=== PATIENT | female | born 1950 | race Two or more races ===

== ENCOUNTER 2024-06-24 18:04 | Inpatient (IN) | payer MEDICARE, MEDICAID ==
[~2024-06-24] VITALS: Ht 167.6 cm; Wt 77.0 kg
--- NOTE | 2024-06-24 18:38 | ED.PDOC ---
HPI Comments 73-year-old female who came to ER via EMS for chest pains. Patient has history of Parkinson's disease and progressive supranuclear palsy. History obtained from daughter who accompanies patient. States for the past hour, patient developed sudden onset left-sided chest pains, sharp, tender to touch, worsening with deep breathing. Patient denies any history of chest pains. Patient was given 324 aspirin by paramedics, and pain improved. Patient is saturating 99% room air, systolic blood pressure 150, and blood sugar of 112. Chief Complaint: Chest Pain Time Seen by MD: 18:37 Primary Care Provider: BOB COVINGTON Reviewed Notes: [email or web address] Java Developer Notes Information Source: Relative Mode of Arrival: EMS Severity: Moderate Timing: Minutes Duration: Since onset Prehospital treatment: ASA Location: Chest (L) Radiation: No Radiation Quality: Sharp Onset: With Light Exertion Cardiac Risk Factors: None PE Risk Factors: None History of: Similar pain in past Modifying Factors: Nothing Associated Signs and Symptoms: SOB Past Medical History Past Medical History (Other): Parkinson's disease. Progressive supranuclear palsy Surgical History: Cholecystectomy NURSING CLERK History: Denies all NURSING CLERK Hx Family History Family History: Reviewed,noncontributory to illness Social History Smoker: Non-Smoker Alcohol: Denies ETOH Use Drugs: Denies Drug Use Lives In: Home Unable to Obtain due to: Other (History of Parkinson's disease) Physical Exam General Appearance: No Apparent Distress, Normal HEENT: Normal ENT Inspection, Pharynx Normal, TMs Normal Neck: Full Range of Motion, Non-Tender, Normal, Normal Inspection Respiratory: Chest Non-Tender, Lungs Clear, No Accessory Muscle Use, No Respiratory Distress, Normal Breath Sounds Cardiovascular: No Edema, No JVD, No Murmur, No Gallop, Normal Peripheral Pulses, Regular Rate/Rhythm Breast Exam: Deferred Gastrointestinal: No Organomegaly, Non Tender, No Pulsatile Mass, Normal Bowel Sounds, Soft Genitalia: Deferred Pelvic: Deferred Rectal: Deferred Extremities: No calf tenderness, Normal capillary refill, Normal inspection, Normal range of motion, Non-tender, No pedal edema Musculoskeletal : Apperance: Normal Neurologic: Alert, driver/refuse collector II-XII nml as Tested, No Motor Deficits, Normal Affect, Normal Mood, No Sensory Deficits Cerebellar Function: Normal Reflexes: Normal Skin: Dry, Normal Color, Warm Lymphatic: No Adenopathy Was a procedure done? Was a procedure done?: No CP Differential Dx Differential Diagnosis: Angina, Anxiety / Panic Attack Differential Diagnosis: Angina, Chest Wall Pain, Costochondritis, Esophageal reflux/spasm, Gastritis, Myocardial Infarction, Pneumonia X-Ray, Labs, Meds, VS Vital Signs Date Time Temp Pulse Resp B/P (MAP) Pulse Ox O2 Delivery O2 Flow Rate FiO2 06/24/24 20:42 Room Air* 0 21 06/24/24 20:41 77 18 170/83 (112) 98 06/24/24 18:08 98.1 71 16 158/85 (109) 98 06/24/24 18:04 77 Lab Test 06/24/24 20:08 06/24/24 19:23 Range/Units Troponin I High Sensitivity Pending 86 *H </=34 ng/L White Blood Count 6.4 4.4-10.8 10^3/uL Red Blood Count 3.66 L 4.0-5.20 10^6/uL Hemoglobin 12.3 12.2-16.2 g/dL Hematocrit 36.2 36.0-46.0 % Mean Corpuscular Volume 98.9 80.0-100.0 fL Mean Corpuscular Hemoglobin 33.8 H 28.0-32.0 pg Mean Corpuscular Hemoglobin Concent 34.1 32.0-36.0 g/dL Red Cell Distribution Width 12.6 11.8-14.3 % Platelet Count 217 140-450 10^3/uL Mean Platelet Volume 8.6 6.9-10.8 fL Neutrophils (%) (Auto) 75.1 37.0-80.0 % Lymphocytes (%) (Auto) 16.9 10.0-50.0 % Monocytes (%) (Auto) 7.3 0.0-12.0 % Eosinophils (%) (Auto) 0.4 0.0-7.0 % Basophils (%) (Auto) 0.3 0.0-2.0 % Neutrophils # (Auto) 4.8 1.6-8.6 10 ^3/uL Lymphocytes # (Auto) 1.1 0.4-5.4 10 ^3/uL Monocytes # (Auto) 0.5 0-1.3 10 ^3/uL Eosinophils # (Auto) 0 0-0.8 10 ^3/uL Basophils # (Auto) 0 0-0.2 10 ^3/uL Nucleated Red Blood Cells 0.2 % Sodium Level 136 136-145 mmol/L Potassium Level 3.7 3.5-5.1 mmol/L Chloride Level 100 98-107 mmol/L Carbon Dioxide Level 31 20-31 mmol/L Anion Gap 5 5-15 Blood Urea Nitrogen 8 L 9-23 mg/dL Creatinine 0.72 0.550-1.02 mg/dL Glomerular Filtration Rate Calc 88 >90 mL/min BUN/Creatinine Ratio 11.1 10.0-20.0 Serum Glucose 98 74-106 mg/dL Calcium Level 8.9 8.7-10.4 mg/dL Total Bilirubin 0.2 0.2-1.0 mg/dL Aspartate Amino Transferase (AST) 30 13-40 U/L Alanine Aminotransferase (ALT) 16 7-40 U/L Alkaline Phosphatase 102 46-116 U/L B-Type Natriuretic Peptide 62.27 0-100 pg/mL Total Protein 5.5 L 5.7-8.2 g/dL Albumin 3.2 3.2-4.8 g/dL Time of 1ST Reevaluation: 18:34 Reevaluation 1ST: Unchanged Time of 2ND Reevaluation: 20:49 Reevaluation 2ND: Unchanged Patient Education/Counseling: Diagnosis, Treatment Family Education/Counseling: Diagnosis, Treatment Departure 1 Departure Time of Disposition: 20:49 Impression: Primary Impression: Acute coronary syndrome Disposition: ADMITTED INPATIENT Admit to: [facility] Condition: Guarded Critical Care Note Critical Care Time?: Yes (35 min-critical care time only) Critical care comment: Acute chest pains Total critical care time: Approximately 36 minutes Due to a high probability of clinically significant, life threatening deterioration, the patient required my highest level of preparedness to intervene emergently and I personally spent this critical care time directly and personally managing the patient. This critical care time included obtaining a history; examining the patient; pulse oximetry; ordering and review of studies; arranging urgent treatment with development of a management plan; evaluation of patient's response to treatment; frequent reassessment; and, discussions with other providers. This critical care time was performed to assess and manage the high probability of imminent, life-threatening deterioration that could result in multi-organ failure. It was exclusive of separately billable procedures and treating other patients. Stability Stability form required: No Heart Score Heart Score: Heart Score Response (Comments) Value History Moderate Suspicious 1 EKG Normal 0 Age >65 2 Risk Factors >3 or Hx ASHD 2 Troponin >3 x's Normal limit 2 Total 7 I personally scribed for HONG CHRISTIANSON MD ([email or web address]) on 06/24/24 at 18:38. Electronically submitted by Sonu Andrade ([email or web address]). HONG CHRISTIANSON MD Jun 24, 2024 18:38
[2024-06-24 19:44] LABS: Basophils # (auto) 0 10 ^3/uL (0-0.2); Basophils % (auto) 0.3 % (0.0-2.0); Eosinophils # (auto) 0 10 ^3/uL (0-0.8); Eosinophils % (auto) 0.4 % (0.0-7.0); Hematocrit 36.2 % (36.0-46.0); Hemoglobin 12.3 g/dL (12.2-16.2); Lymphocytes # (auto) 1.1 10 ^3/uL (0.4-5.4); Lymphocytes % (auto) 16.9 % (10.0-50.0); Mean Corpuscular Hemoglobin 33.8 pg (28.0-32.0); Mean Corpuscular Hgb Conc. 34.1 g/dL (32.0-36.0); Mean Corpuscular Volume 98.9 fL (80.0-100.0); Monocytes # (auto) 0.5 10 ^3/uL (0-1.3); Monocytes % (auto) 7.3 % (0.0-12.0); Neutrophils # (auto) 4.8 10 ^3/uL (1.6-8.6); Neutrophils % (auto) 75.1 % (37.0-80.0); Nucleated Red Blood Cells % 0.2 %; Platelet Count (auto) 217 10^3/uL (140-450); Red Blood Cells 3.66 10^6/uL (4.0-5.20); Red Cell Distribution Width 12.6 % (11.8-14.3); White Blood Cell 6.4 10^3/uL (4.4-10.8)
[2024-06-24 20:02] LABS: Alanine Aminotransferase 16 U/L (7-40); Alkaline Phosphatase 102 U/L (46-116); Anion Gap 5 (5-15); Aspartate Aminotransferase 30 U/L (13-40); BUN/Creatinine Ratio 11.1 (10.0-20.0); Calcium 8.9 mg/dL (8.7-10.4); Carbon Dioxide 31 mmol/L (20-31); Chloride 100 mmol/L (98-107); Glucose 98 mg/dL (74-106); Potassium 3.7 mmol/L (3.5-5.1)
[2024-06-24 20:05] LABS: Albumin 3.2 g/dL (3.2-4.8); Bilirubin, Total 0.2 mg/dL (0.2-1.0); Blood Urea Nitrogen 8 mg/dL (9-23); Sodium 136 mmol/L (136-145); Total Protein 5.5 g/dL (5.7-8.2)
[2024-06-24] MEDS: PRIMIDONE 50 MG TAB PO ONE (20:51)
[2024-06-24] MEDS: GABAPENTIN 100 MG CAP PO ONE (20:51)
[2024-06-24] MEDS: CARBIDOPA W LEVODOPA 25/100mg TABLET PO ONE (20:51)
[2024-06-24] MEDS: PHENYTOIN 100 MG/4 ML SUSP GT ONE (20:52)
[2024-06-24] MEDS: TOPIRAMATE 25 MG TAB PO ONE (20:52)
[2024-06-24] MEDS: ASPirin-EC 81 mg tab PO ONE (21:00)
--- NOTE | 2024-06-24 21:08 | DVH ---
CHEST RADIOGRAPH Indication: chest pain Technique: Single frontal view of the chest was obtained Comparison: None FINDINGS: Lines and Tubes: None Lungs: No focal consolidation. Senescent changes of the lungs. Pleura: No effusion. No pneumothorax. Cardiomediastinal contours: Unremarkable Bones: No acute osseous abnormality. IMPRESSION: No acute cardiopulmonary disease.
[2024-06-24] MEDS ORDERED: ACETAMINOPHEN 325 MG TAB PO PRN (23:00)
[2024-06-24] MEDS ORDERED: hydrALAZINE HCL 20 MG/ML VL IV PRN (23:00)
[2024-06-24] MEDS ORDERED: DOCUSATE SOD 100 MG CAP PO PRN (23:00)
[2024-06-24] MEDS ORDERED: HYDROcodone-ACET 5/325MG TAB PO PRN (23:00)
[2024-06-24] MEDS ORDERED: MORPHINE SULFATE INJ 2 MG/ml SYRG IV PRN (23:00)
[2024-06-24] MEDS ORDERED: ONDANSETRON HCL 4 MG/2 ML VIAL IV PRN (23:00)
[2024-06-24] MEDS ORDERED: NITROGLYCERIN 0.4 MG SL TAB SL PRN (23:00)
--- NOTE | 2024-06-24 23:00 | DVHHP2 ---
History of Present Illness Reason for Visit: Acute coronary syndrome History of Present Illness The patient is a 73-year-old female with past medical history of Parkinson's disease and supranuclear palsy presented to [facility] ED with complaint of chest pain. As reported by daughter, patient has suddenly to follow up onset of left-sided chest pain, sharp in nature, tender to touch, worse with deep breathing, and generalized weakness. Patient was seen and evaluated in the ED, laboratory data shows WBC 6.4, platelets 217, sodium 136, potassium 3.7, BUN 8, creatinine 0.72, GFR 88, glucose 98, troponin 86, BNP 62.27, protein 5.5, blood pressure 137/75, heart rate 64, temperature 98.1 F, O2 saturation 98% room air. Chest x-ray show no acute cardiopulmonary disease. Please see medication orders section in the computer. On my assessment, patient denied chest pain at this moment, no headache, no dizziness, no diaphoresis, no palpitation, no shortness of breath, nausea, no vomiting, no fever, no chills. Patient was admitted for further evaluation medical management. Past Medical History Parkinson's disease, Progressive supranuclear palsy Past Surgical History Cholecystectomy Family History Reviewed, noncontributory to the management of this case. Past Social History The patient lives at home, denies smoking, alcohol or illicit drugs abuse. Review of Systems Constitutional: Yes: Weakness; No: Fever, Chills, Sweats, Malaise, Other Eyes: No: Pain, Vision change, Conjunctivae inflammation, Eyelid inflammation, Other, Redness ENT: No: Ear pain, Ear discharge, Nose pain, Nose discharge, Nose congestion, Mouth pain, Mouth swelling, Throat pain, Throat swelling, Other Respiratory: No: Cough, Dry, Shortness of breath, SOB with excertion, Wheezing, Hemoptysis, Pleuritic Pain, Sputum, Wheezing, Other Cardiovascular: Chest Pain; No: Palpitations, Orthopnea, Paroxysmal Noc. Dyspnea, Edema, Lt Headedness, Other Gastrointestinal: No: Nausea, Vomiting, Abdominal Pain, Diarrhea, Constipation, Melena, Hematochezia, Other Genitourinary: No Dysuria, No Frequency, No Incontinence, No Hematuria, No Retention, No Other Musculoskeletal: No: other, neck pain, shoulder pain, arm pain, back pain, hand pain, leg pain, foot pain Skin: No: Rash, Lesions, Jaundice, Bruising, Other Neurological: No: Weakness, Numbness, Incoordination, Change in speech, Confusion, Seizures, Other Allergies: Coded Allergies: NO KNOWN ALLERGIES (Unverified , 06/24/24) Exam Vital Signs Vital Signs Date Time Temp Pulse Resp B/P (MAP) Pulse Ox O2 Delivery O2 Flow Rate FiO2 06/24/24 21:00 67 15 137/75 (95) 98 06/24/24 20:42 Room Air* 0 21 06/24/24 18:08 98.1 General Appearance: Alert, Oriented X3, Cooperative, No acute distress HEENT: Atraumatic, PERRLA, EOMI, Mucous membr. moist/pink Respiratory: Clear to auscultation, Normal air movement Cardiovascular: Regular rate, Normal S1, Normal S2, No murmurs Abdominal: Normal bowel sounds, Soft, No tenderness, No hepatospenomegaly, No masses Extremities: No clubbing, No cyanosis, No edema, Normal pulses, No tenderness/swelling Skin: No rashes, No breakdown, No significant lesion Neuro: Normal speech, Normal tone, Sensation intact, Cranial nerves 3-12 NL, Reflexes 2+, Other (Generalized weakness) Psych/Mental Status: Mental status NL, Mood NL Labs/Xrays Labs Test 06/24/24 20:08 06/24/24 19:23 Range/Units Troponin I High Sensitivity 84 *H </=34 ng/L White Blood Count 6.4 4.4-10.8 10^3/uL Red Blood Count 3.66 L 4.0-5.20 10^6/uL Hemoglobin 12.3 12.2-16.2 g/dL Hematocrit 36.2 36.0-46.0 % Mean Corpuscular Volume 98.9 80.0-100.0 fL Mean Corpuscular Hemoglobin 33.8 H 28.0-32.0 pg Mean Corpuscular Hemoglobin Concent 34.1 32.0-36.0 g/dL Red Cell Distribution Width 12.6 11.8-14.3 % Platelet Count 217 140-450 10^3/uL Mean Platelet Volume 8.6 6.9-10.8 fL Neutrophils (%) (Auto) 75.1 37.0-80.0 % Lymphocytes (%) (Auto) 16.9 10.0-50.0 % Monocytes (%) (Auto) 7.3 0.0-12.0 % Eosinophils (%) (Auto) 0.4 0.0-7.0 % Basophils (%) (Auto) 0.3 0.0-2.0 % Neutrophils # (Auto) 4.8 1.6-8.6 10 ^3/uL Lymphocytes # (Auto) 1.1 0.4-5.4 10 ^3/uL Monocytes # (Auto) 0.5 0-1.3 10 ^3/uL Eosinophils # (Auto) 0 0-0.8 10 ^3/uL Basophils # (Auto) 0 0-0.2 10 ^3/uL Nucleated Red Blood Cells 0.2 % Sodium Level 136 136-145 mmol/L Potassium Level 3.7 3.5-5.1 mmol/L Chloride Level 100 98-107 mmol/L Carbon Dioxide Level 31 20-31 mmol/L Anion Gap 5 5-15 Blood Urea Nitrogen 8 L 9-23 mg/dL Creatinine 0.72 0.550-1.02 mg/dL Glomerular Filtration Rate Calc 88 >90 mL/min BUN/Creatinine Ratio 11.1 10.0-20.0 Serum Glucose 98 74-106 mg/dL Calcium Level 8.9 8.7-10.4 mg/dL Total Bilirubin 0.2 0.2-1.0 mg/dL Aspartate Amino Transferase (AST) 30 13-40 U/L Alanine Aminotransferase (ALT) 16 7-40 U/L Alkaline Phosphatase 102 46-116 U/L B-Type Natriuretic Peptide 62.27 0-100 pg/mL Total Protein 5.5 L 5.7-8.2 g/dL Albumin 3.2 3.2-4.8 g/dL PATIENT: MARIA A REIDT: [id number] UNIT: [id number] : 1950 LOC: ER ROOM / BED: / AGE / SEX: 73 / F ADM STATUS: REG ER SERVICE 13 ORDERING PHYSICIAN: HONG CHRISTIANSON MD PROCEDURE(s): CXRP - CHEST PORTABLE REASON: chest pain ORDER NUMBER(s): [id number], ACCESSION NUMBER(s): [id number] CHEST RADIOGRAPH Indication: chest pain Technique: Single frontal view of the chest was obtained Comparison: None FINDINGS: Lines and Tubes: None Lungs: No focal consolidation. Senescent changes of the lungs. Pleura: No effusion. No pneumothorax. Cardiomediastinal contours: Unremarkable Bones: No acute osseous abnormality. IMPRESSION: No acute cardiopulmonary disease. Assessment/Plan Assessment/Plan Generalized weakness Acute coronary syndrome Plan 1. Admit to telemetry unit 2. Breathing treatment 3. Pain control management 4. Management of fluids and electrolytes 5. Consultation for hospitalist 6. Diagnostic tests-chest x-ray 7. DVT prophylaxis -on aspirin 8. Repeat labs CBC, CMP in a.m. 9. Continue with current medical management 10. Treatment plan discussed with patient and RN. Patient verbalized understanding. Plan discussed with: Patient, Daughter, Other (RN) My Orders Orders - ARIANE HATCH DNP Procedure Category Date Status Time Aspirin Tablet PHA 06/25/24 Verified 10:00 Phenytoin Suspension PHA 06/25/24 Verified (Dilantin Suspensio 10:00 Carbidopa W Levodopa PHA 06/25/24 Verified 25/100mg (Sinemet 2 06:00 Gabapentin Capsule PHA 06/25/24 Verified (Neurontin Capsule) 06:00 Topiramate (Topamax) PHA 06/25/24 Verified 10:00 Hydralazine Injection PHA 06/24/24 Verified (Apresoline Inject 23:00 Admit ADMIT 06/24/24 Verified 22:48 Allergies ANIKET 06/24/24 Verified 22:48 Code Status CODE 06/24/24 Verified 22:48 0.9% Ns 1000 Ml PHA 06/24/24 Verified 23:00 Oxygen Per Hour RT 06/24/24 Verified 22:48 Hydrocodone-Acet PHA 06/24/24 Verified 5/325mg Tab (Napavine 23:00 Ondansetron Hcl PHA 06/24/24 Verified (Zofran) 23:00 Docusate Sodium PHA 06/24/24 Verified Capsule (Colace 23:00 Fall Risk Precautions ANIKET 06/24/[address] 22:48 Problem List: (1) Generalized weakness (2) Acute coronary syndrome Date of Service: Jun 24, 2024 Billing Provider: ARIANE HATCH DNP Common Visit Codes: [id number] INP/OBS CARE (HIGH) ARIANE HATCH DNP Jun 24, 2024 23:00
[2024-06-24] MEDS: SODIUM CHLORIDE 0.9% 1,000 ML IV SCH (23:43)
[2024-06-25] VITALS (7 sets, daily range): BP systolic 101–116; BP diastolic 54–78; PULSE 60–85; RESP 16–20; TEMP 97.3–97.9; O2SAT 92–100
[2024-06-25 02:25] LABS: Urine Amorphous Crystal FEW /hpf (None Seen); Urine Bacteria FEW /hpf (None Seen); Urine Blood Negative /uL (Negative); Urine Clarity Clear (Clear); Urine Protein, UAD Negative (Negative); Urine Specific Gravity 1.007 (1.001-1.035); Urine Squamous Epithelial Cell FEW /hpf (<5); Urine Urobilinogen Normal (Negative); Urine WBC 14 /hpf (0 - 5); Urine pH 7.5 (5.0-9.0)
[2024-06-25 02:28] LABS: Urine Color STRAW (Yellow)
[2024-06-25 05:02] LABS: Basophils # (auto) 0 10 ^3/uL (0-0.2); Basophils % (auto) 0.5 % (0.0-2.0); Eosinophils # (auto) 0 10 ^3/uL (0-0.8); Eosinophils % (auto) 0.8 % (0.0-7.0); Hematocrit 32.8 % (36.0-46.0); Hemoglobin 11.3 g/dL (12.2-16.2); Lymphocytes # (auto) 1.8 10 ^3/uL (0.4-5.4); Lymphocytes % (auto) 34.5 % (10.0-50.0); Mean Corpuscular Hemoglobin 33.9 pg (28.0-32.0); Mean Corpuscular Hgb Conc. 34.4 g/dL (32.0-36.0); Mean Corpuscular Volume 98.4 fL (80.0-100.0); Monocytes # (auto) 0.5 10 ^3/uL (0-1.3); Monocytes % (auto) 10.3 % (0.0-12.0); Neutrophils # (auto) 2.8 10 ^3/uL (1.6-8.6); Neutrophils % (auto) 53.9 % (37.0-80.0); Nucleated Red Blood Cells % 0.1 %; Platelet Count (auto) 196 10^3/uL (140-450); Red Blood Cells 3.33 10^6/uL (4.0-5.20); Red Cell Distribution Width 12.5 % (11.8-14.3); White Blood Cell 5.2 10^3/uL (4.4-10.8)
[2024-06-25 05:06] LABS: Alkaline Phosphatase 88 U/L (46-116); Anion Gap 4 (5-15); Bilirubin, Total 0.3 mg/dL (0.2-1.0); Calcium 8.7 mg/dL (8.7-10.4); Carbon Dioxide 31 mmol/L (20-31); Chloride 103 mmol/L (98-107); Glucose 81 mg/dL (74-106); Sodium 138 mmol/L (136-145)
[2024-06-25 05:08] LABS: Alanine Aminotransferase < 9 U/L (7-40); Albumin 3.1 g/dL (3.2-4.8); Blood Urea Nitrogen 6 mg/dL (9-23); Potassium 3.3 mmol/L (3.5-5.1); Total Protein 5.1 g/dL (5.7-8.2)
[2024-06-25 06:06] LABS: Aspartate Aminotransferase 23 U/L (13-40)
[2024-06-25] MEDS: CARBIDOPA W LEVODOPA 25/100mg TABLET PO SCH (06:11)
[2024-06-25] MEDS: GABAPENTIN 100 MG CAP PO SCH (06:11)
[2024-06-25] MEDS: ASPirin 81 mg TAB PO SCH (08:19)
[2024-06-25] MEDS: TOPIRAMATE 25 MG TAB PO SCH (08:20)
[2024-06-25] MEDS: PHENYTOIN 100 MG/4 ML SUSP GT SCH (08:20)
--- NOTE | 2024-06-25 10:49 | DVHPN2 ---
Subjective 73-year-old female with a history of Parkinson's disease and supranuclear palsy came with chest pain Troponin slightly elevated at 86 Potassium is 3.3 Changes from previous H/P or p: Changes Eyes: No Pain, No Vision change, No Conjunctivae inflammation, No Eyelid inflammation, No Other, No Redness ENT: No Ear pain, No Ear discharge, No Nose pain, No Nose discharge, No Nose congestion, No Mouth pain, No Mouth swelling, No Throat pain, No Throat swelling, No Other Cardiovascular: Chest Pain; No Palpitations, No Orthopnea, No Paroxysmal Noc. Dyspnea, No Edema, No Lt Headedness, No Other Respiratory: No Cough, No Dry, No Shortness of breath, No SOB with excertion, No Wheezing, No Hemoptysis, No Pleuritic Pain, No Sputum, No Other Gastrointestinal: No Nausea, No Vomiting, No Abdominal Pain, No Diarrhea, No Constipation, No Melena, No Hematochezia, No Other Genitourinary: No Dysuria, No Frequency, No Incontinence, No Hematuria, No Retention, No Other Musculoskeletal: No other, No neck pain, No shoulder pain, No arm pain, No back pain, No hand pain, No leg pain, No foot pain Skin: No Rash, No Lesions, No Jaundice, No Bruising, No Other Objective Vitals Vital Signs Date Time Temp Pulse Resp B/P (MAP) Pulse Ox O2 Delivery O2 Flow Rate FiO2 06/25/24 09:00 97.6 62 18 101/57 (72) 96 97.6 06/25/24 08:00 Room Air* 0 21 Intake/Output Intake and Output 06/25/24 07:00 Intake Total 240 ml Balance 240 ml Intake IV Total 240 ml General Appearance: Alert, Other (Unable to assess orientation) Lungs: Clear to auscultation, Normal air movement Cardiovascular: Regular rate, Normal S1, Normal S2 Abdomen: Normal bowel sounds, Soft, No tenderness Extremities: No edema Medications Current Medications Medications Dose Ordered Sig/Gonzalez Route Start Time Stop Time Status Last Admin Dose Admin Aspirin 81 mg DAILY PO 06/25/24 10:00 06/25/24 08:19 81 MG Phenytoin Sodium 100 mg Q12HR GT 06/25/24 10:00 06/25/24 08:20 100 MG Carbidopa/Levodopa 1 tab TID PO 06/25/24 06:00 06/25/24 06:11 1 TAB Gabapentin 100 mg TID PO 06/25/24 06:00 06/25/24 06:11 100 MG Topiramate 25 mg BID PO 06/25/24 10:00 06/25/24 08:20 25 MG Hydralazine HCl 10 mg Q6HP PRN IV 06/24/24 23:00 Sodium Chloride 1,000 ml @ 60 mls/hr [id number] IV 06/24/24 23:00 06/25/24 08:31 60 MLS/HR Acetaminophen/ Hydrocodone Bitart 1 tab Q4HP PRN PO 06/24/24 23:00 Ondansetron HCl 4 mg Q4HP PRN IV 06/24/24 23:00 Docusate Sodium 100 mg BIDPRN PRN PO 06/24/24 23:00 Acetaminophen 650 mg Q6HP PRN PO 06/24/24 23:00 Nitroglycerin 0.4 mg Q5MINP PRN SL 06/24/24 23:00 Morphine Sulfate 2 mg Q30M PRN IV 06/24/24 23:00 Laboratory Results Laboratory Tests 06/25/24 03:30 Chemistry Test 06/24/24 19:23 06/25/24 03:30 Albumin 3.2 g/dL (3.2-4.8) 3.1 g/dL (3.2-4.8) L Calcium Level 8.9 mg/dL (8.7-10.4) 8.7 mg/dL (8.7-10.4) Total Protein 5.5 g/dL (5.7-8.2) L 5.1 g/dL (5.7-8.2) L Cardiac Markers Test 06/24/24 19:23 B-Type Natriuretic Peptide 62.27 pg/mL (0-100) LFT Test 06/24/24 19:23 06/25/24 03:30 Alanine Aminotransferase (ALT) 16 U/L (7-40) < 9 U/L (7-40) Alkaline Phosphatase 102 U/L (46-116) 88 U/L (46-116) Aspartate Amino Transferase (AST) 30 U/L (13-40) 23 U/L (13-40) Total Bilirubin 0.2 mg/dL (0.2-1.0) 0.3 mg/dL (0.2-1.0) Urinalysis Test 06/24/24 20:40 Urine Color Straw (Yellow) Urine Clarity Clear (Clear) Urine pH 7.5 (5.0-9.0) Urine Specific Elbe 1.007 (1.001-1.035) Urine Protein Negative (Negative) Urine Ketones Negative (Negative) Urine Blood Negative /uL (Negative) Urine Nitrite Negative (Negative) Urine Bilirubin Negative (Negative) Urine Urobilinogen Normal mg/dL (Negative) Urine Leukocyte Esterase 2+ /uL (Negative) Urine RBC None seen /hpf (0 - 4) Urine WBC 14 /hpf (0 - 5) Urine Squamous Epithelial Cells Few /hpf (<5) Urine Amorphous Crystals Few /hpf (None Seen) Urine Bacteria Few /hpf (None Seen) H Urine Glucose Normal mg/dL (Normal) Assessment/Plan Assessment/Plan Chest pain Acute coronary syndrome NSTEMI Parkinson's disease Supranuclear palsy Hypokalemia mild protein malnutrition Plan Aspirin Continue home meds including Sinemet and gabapentin and Dilantin and Topamax Cardiology consult Echocardiogram Protonix for GI prophylaxis Lovenox for DVT prophylaxis Called the family to update them about her condition, no answer Plan discussed with: Patient, Other My Orders Orders - KEEGAN BEE MD Procedure Category Date Status Time Potassium Er Tablet PHA 06/25/24 Logged (Klor-Con Tablet) 10:45 Date of Service: Jun 25, 2024 Billing Provider: KEEGAN BEE MD Common Visit Codes: [id number] INP/OBS CARE(HIGH) KEEGAN BEE MD Jun 25, 2024 10:48
[2024-06-25] MEDS: PANTOPRAZOLE 40 MG/10 ML VIAL INJ IV ONE (11:50)
[2024-06-25] MEDS: ENOXAPARIN SOD 30 MG/0.3 ML SYRINGE SC ONE (11:51)
[2024-06-25] MEDS: POTASSIUM CHL 20 Meq TABLET PO ONE (11:51)
[2024-06-25] MEDS: POTASSIUM EFFERVESENT TAB 25 MEQ PO ONE (13:00)
--- NOTE | 2024-06-25 14:46 | DVHINCON2 ---
Date Seen: Jun 25, 2024 Referring Physician MD Marjorie Reason for Consultation Chest pain History of Present Illness This is a 73-year-old female patient who presents to the emergency room with chief complaint of chest pain. Patient reports that the pain began at approximately 4:30 p.m. yesterday while lying down. She describes the pain as unprovoked, squeezing in nature, left-sided radiation down left arm. She denies any aggravating or alleviating factors. She was brought to the emergency room further evaluation. During physical assessment, chest pain is reproducible. Initial twelve lead electrocardiogram reveals normal sinus rhythm without any significant ST segment changes. Initial troponin level of 86ng/L with flat trend thereafter. Significant past medical history includes Parkinson's disease, progressive supranuclear palsy, and epilepsy. Of note, the patient was noted to have a blood pressure reaching as high as 170/83 while in the emergency room. Past Medical History Past medical history reviewed. No other significant than mentioned above. Past Surgical History Cholecystectomy Family History: Patient reports no known family medical history. Family History Family history reviewed. Social History Denies the use of tobacco, alcohol or illicit drugs. Allergies: Coded Allergies: NO KNOWN ALLERGIES (Unverified , 06/24/24) Home Meds Unable to Obtain Active Prescriptions or Reported Meds Home Meds Home medications reviewed. Current Medications Current Medications Medications (Trade) Dose Ordered Sig/Gonzalez Route PRN Reason Start Time Stop Time Status Last Admin Aspirin 81 mg DAILY PO 06/25/24 10:00 06/25/24 08:19 Phenytoin Sodium (Dilantin Suspension) 100 mg Q12HR GT 06/25/24 10:00 06/25/24 08:20 Carbidopa/Levodopa (Sinemet 25/ 100MG) 1 tab TID PO 06/25/24 06:00 06/25/24 13:00 Gabapentin (Neurontin Capsule) 100 mg TID PO 06/25/24 06:00 06/25/24 12:59 Topiramate (Topamax) 25 mg BID PO 06/25/24 10:00 06/25/24 08:20 Hydralazine HCl (Apresoline Injection) 10 mg Q6HP PRN IV SBP>150 06/24/24 23:00 Sodium Chloride 1,000 ml @ 60 mls/hr [id number] IV 06/24/24 23:00 06/25/24 08:31 Acetaminophen/ Hydrocodone Bitart (Banco 5/325MG Tab) 1 tab Q4HP PRN PO MODERATE PAIN (4-6 PAIN SCALE) 06/24/24 23:00 Ondansetron HCl (Zofran) 4 mg Q4HP PRN IV NAUSEA / VOMITING 06/24/24 23:00 Docusate Sodium (Colace Capsule) 100 mg BIDPRN PRN PO FOR CONSTIPATION 06/24/24 23:00 Acetaminophen (Tylenol Tablet) 650 mg Q6HP PRN PO PAIN SCALE 1-3 OR TEMP>100.4 06/24/24 23:00 Nitroglycerin (Ntrostat Sublingual) 0.4 mg Q5MINP PRN SL FOR CHEST PAIN 06/24/24 23:00 Morphine Sulfate 2 mg Q30M PRN IV FOR CHEST PAIN 06/24/24 23:00 Pantoprazole Sodium (Protonix) 40 mg DAILY IV 06/26/24 10:00 Enoxaparin Sodium (Lovenox) 30 mg DAILY SC 06/26/24 10:00 Review of Systems Constitutional: No symptom reported Ears, Nose, & Throat: No symptom reported Eyes: No symptom reported Neurological: No symptoms reported Pulmonary/Respiratory: No symptoms reported Cardiovascular: Chest pain Gastrointestinal: No symptom reported Genitourinary: No symptom reported Musculoskeletal: No symptom reported Skin: No symptom reported Psychiatric: No symptom reported Endocrine: No symptom reported Hematologic/Lymphatic: No symptom reported Vital Signs Vital Signs Date Time Temp Pulse Resp B/P (MAP) Pulse Ox O2 Delivery O2 Flow Rate FiO2 06/25/24 13:00 97.6 60 17 112/64 (80) 92 97.6 06/25/24 08:00 Room Air* 0 21 Physical Exam General Appearance: Cooperative. Thin, frail Pulmonary/Respiratory: Clear, bilateral breaths sounds. Cardiovascular/Chest: Regular rate and rhythm. Peripheral Pulses: 2+ Radial (R). 2+ Radial (L). 2+ Pedal (R). 2+ Pedal (L) Abdominal Exam: Normal bowel sounds. Ankle Exam: Negative ankle edema Lower extremities: Negative lower extremity edema Neuro/Mental Status: A/OX4, coherent. Thoughts/Psych: Normal thought pattern. Appropriate mood and affect. Good judgment and insight. Appearance: No acute distress. Skin Exam: Normal inspection. Normal color. Warm and dry. Labs/Diagnostic Data Labs Test 06/25/24 03:30 06/24/24 20:40 06/24/24 20:08 06/24/24 19:23 Range/Units White Blood Count 5.2 4.4-10.8 10^3/uL Red Blood Count 3.33 L 4.0-5.20 10^6/uL Hemoglobin 11.3 L 12.2-16.2 g/dL Hematocrit 32.8 L 36.0-46.0 % Mean Corpuscular Volume 98.4 80.0-100.0 fL Mean Corpuscular Hemoglobin 33.9 H 28.0-32.0 pg Mean Corpuscular Hemoglobin Concent 34.4 32.0-36.0 g/dL Red Cell Distribution Width 12.5 11.8-14.3 % Platelet Count 196 140-450 10^3/uL Mean Platelet Volume 9.1 6.9-10.8 fL Neutrophils (%) (Auto) 53.9 37.0-80.0 % Lymphocytes (%) (Auto) 34.5 10.0-50.0 % Monocytes (%) (Auto) 10.3 0.0-12.0 % Eosinophils (%) (Auto) 0.8 0.0-7.0 % Basophils (%) (Auto) 0.5 0.0-2.0 % Neutrophils # (Auto) 2.8 1.6-8.6 10 ^3/uL Lymphocytes # (Auto) 1.8 0.4-5.4 10 ^3/uL Monocytes # (Auto) 0.5 0-1.3 10 ^3/uL Eosinophils # (Auto) 0 0-0.8 10 ^3/uL Basophils # (Auto) 0 0-0.2 10 ^3/uL Nucleated Red Blood Cells 0.1 % Sodium Level 138 136-145 mmol/L Potassium Level 3.3 L 3.5-5.1 mmol/L Chloride Level 103 98-107 mmol/L Carbon Dioxide Level 31 20-31 mmol/L Anion Gap 4 L 5-15 Blood Urea Nitrogen 6 L 9-23 mg/dL Creatinine 0.67 0.550-1.02 mg/dL Glomerular Filtration Rate Calc 92 >90 mL/min BUN/Creatinine Ratio 9.0 L 10.0-20.0 Serum Glucose 81 74-106 mg/dL Calcium Level 8.7 8.7-10.4 mg/dL Total Bilirubin 0.3 0.2-1.0 mg/dL Aspartate Amino Transferase (AST) 23 13-40 U/L Alanine Aminotransferase (ALT) < 9 7-40 U/L Alkaline Phosphatase 88 46-116 U/L Total Protein 5.1 L 5.7-8.2 g/dL Albumin 3.1 L 3.2-4.8 g/dL Urine Color Straw Yellow Urine Clarity Clear Clear Urine pH 7.5 5.0-9.0 Urine Specific [place] 1.007 1.001-1.035 Urine Protein Negative Negative Urine Ketones Negative Negative Urine Blood Negative Negative /uL Urine Nitrite Negative Negative Urine Bilirubin Negative Negative Urine Urobilinogen Normal Negative mg/dL Urine Leukocyte Esterase 2+ Negative /uL Urine RBC None seen 0 - 4 /hpf Urine WBC 14 0 - 5 /hpf Urine Squamous Epithelial Cells Few <5 /hpf Urine Amorphous Crystals Few None Seen /hpf Urine Bacteria Few H None Seen /hpf Urine Glucose Normal Normal mg/dL Troponin I High Sensitivity 84 *H </=34 ng/L B-Type Natriuretic Peptide 62.27 0-100 pg/mL Assessment Hypertensive urgency NSTEMI type II secondary to above Hypokalemia Progressive supranuclear palsy Parkinson's disease Epilepsy Bed-bound Plan/Recommendation We will continue following plan/recommendations (Dr. Chavarria): * Echocardiogram reveals EF 60% * Chest pain * HEART score: 3 points * BP control * Monitor and replete electrolytes as needed * Cardiac surveillance: Notify Cardiology team for any ECG changes * DVT/VTE prophylaxis Case discussed with . Given clinical presentation, unremarkable twelve lead electrocardiogram, and low HEART score, doubt ACS. We will continue with treating the patient with medical management. Thank you for allowing us to care for this patient. Please call with any questions or concerns. Critical care time spent: 38 minutes This medical document was created using an electronic medical record system with voice recognition software and computerized dictation system. Although this document has been carefully reviewed, there might still be some phonetic and typographical errors. Occasional wrong-word or ``sound-alike substitutions may have occurred due to the inherent limitations of voice recognition software. These areas are purely typographical due to imperfections of the software programs and do not reflect any compromise in the patient's medical care. Please read the chart carefully and recognize, using context, where these substitutions have occurred. Plan discussed with: Patient, Daughter Date of Service: Jun 25, 2024 Billing Provider: ALIA GERARD Cardiology Common Codes: 30120-NLDLIMH INP/OBS CARE (High) Cardiology Consultation Codes: 58768-[id number] CONSULT <45MIN ALIA GERARD Jun 25, 2024 14:46
--- NOTE | 2024-06-25 17:04 | DVHSR ---
APPROVED REPORT EXAM: LIMITED Two-dimensional and M-mode echocardiogram with Doppler and color Doppler. Blood Pressure: 101/57 mmHg INDICATION cp RISK FACTORS Height: 5'6, Weight: 88 DIMENSIONS LVDd (3.8-5.7cm)LA (2D)2.6 (1.9-4.0cm)Aortic Root (2.0-3.7cm) EF (%) 60.0 (55-70%)Rt. Atrium4.4 (1.9-4.0cm)Asc. Aorta cm Mitral Valve MitralMitral Stenosis E wave0.50m/sMV Mean GR.mmHg A wave0.86m/sMV Peak GR.mmHg E/A ratio0.62D MVAcm2 DECEL [id number] 1/2 Tim[place] Aortic Valve Aortic ValveAortic Stenosis V11.06m/[place] Mean GR.3mmHg V21.11m/[place] Peak GR.5mmHg Tricuspid Valve TR Velocity2.16m/s [id number] Conclusion Technically limited study. Difficult acoustic windows. Four chamber views reveal what appeared to be biatrial enlargement. Mild concentric LVH. Valves appear to be structurally normal from the limited views obtained. Left ventricular function is preserved at 60% with normal RV function. There is mild tricuspid regurgitation. No pericardial effusion masses or vegetations.
[2024-06-26] VITALS (8 sets, daily range): BP systolic 102–133; BP diastolic 51–70; PULSE 65–91; RESP 17–20; TEMP 97.6–98.4; O2SAT 95–100
--- NOTE | 2024-06-26 05:22 | ECG ---
[facility] Test Date: 2024-06-24 Test Time: 18:03:46 Pat Name: LEONA REID [facility] Gender[facility] F Forestry Worker: holly : 1950 Requested By: HONG CHRISTIANSON Order Number: [id number] Reading MD: Candido Chavarria Measurements Intervals [place] Rate: 77 P: 79 NM: 159 QRS: 85 QRSD: 81 T: 75 QT: 433 QTc: 491 Interpretive Statements Sinus rhythm Borderline right axis deviation Borderline prolonged QT interval Electronically Signed On 06-26-2024 14:13:41 PST by Candido Chavarria Please click the below link to view image of tracing.
[2024-06-26] MEDS: PANTOPRAZOLE 40 MG/10 ML VIAL INJ IV SCH (08:09)
[2024-06-26] MEDS: ENOXAPARIN SOD 30 MG/0.3 ML SYRINGE SC SCH (08:10)
[2024-06-26 09:08] LABS: Alkaline Phosphatase 112 U/L (46-116); Anion Gap 6 (5-15); Aspartate Aminotransferase 29 U/L (13-40); BUN/Creatinine Ratio 15.6 (10.0-20.0); Bilirubin, Total 0.4 mg/dL (0.2-1.0); Blood Urea Nitrogen 10 mg/dL (9-23); Carbon Dioxide 29 mmol/L (20-31); Chloride 104 mmol/L (98-107); Cholesterol 117 mg/dL (< 200); Glucose 91 mg/dL (74-106); HDL Cholesterol 49 mg/dL (40-59); LDL Cholesterol 57 mg/dL (< 100); Magnesium 1.7 mg/dL (1.6-2.6); Sodium 139 mmol/L (136-145); Triglycerides 73 mg/dL (< 150)
[2024-06-26 09:11] LABS: Alanine Aminotransferase < 9 U/L (7-40); Albumin 3.1 g/dL (3.2-4.8); Calcium 8.5 mg/dL (8.7-10.4); Potassium 3.1 mmol/L (3.5-5.1); Total Protein 5.4 g/dL (5.7-8.2)
--- NOTE | 2024-06-26 12:44 | DVHPN2 ---
Subjective Better No chest pain according to her daughter who is at the bedside Changes from previous H/P or p: Changes Eyes: No Pain, No Vision change, No Conjunctivae inflammation, No Eyelid inflammation, No Other, No Redness ENT: No Ear pain, No Ear discharge, No Nose pain, No Nose discharge, No Nose congestion, No Mouth pain, No Mouth swelling, No Throat pain, No Throat swelling, No Other Cardiovascular: Chest Pain; No Palpitations, No Orthopnea, No Paroxysmal Noc. Dyspnea, No Edema, No Lt Headedness, No Other Respiratory: No Cough, No Dry, No Shortness of breath, No SOB with excertion, No Wheezing, No Hemoptysis, No Pleuritic Pain, No Sputum, No Other Gastrointestinal: No Nausea, No Vomiting, No Abdominal Pain, No Diarrhea, No Constipation, No Melena, No Hematochezia, No Other Genitourinary: No Dysuria, No Frequency, No Incontinence, No Hematuria, No Retention, No Other Musculoskeletal: No other, No neck pain, No shoulder pain, No arm pain, No back pain, No hand pain, No leg pain, No foot pain Skin: No Rash, No Lesions, No Jaundice, No Bruising, No Other Objective Vitals Vital Signs Date Time Temp Pulse Resp B/P (MAP) Pulse Ox O2 Delivery O2 Flow Rate FiO2 06/26/24 09:00 98.0 70 17 133/70 (91) 100 98.0 06/26/24 08:00 Room Air* 0 21 Intake/Output Intake and Output 06/26/24 07:00 Intake Total 2305 ml Output Total 250 ml Balance 2055 ml Intake Oral 1045 ml IV Total 1260 ml Output Urine Total 250 ml # Voids 3 General Appearance: Alert, Other (Unable to assess orientation) Lungs: Clear to auscultation, Normal air movement Cardiovascular: Regular rate, Normal S1, Normal S2 Abdomen: Normal bowel sounds, Soft, No tenderness Extremities: No edema Medications Current Medications Medications Dose Ordered Sig/Gonzalez Route Start Time Stop Time Status Last Admin Dose Admin Aspirin 81 mg DAILY PO 06/25/24 10:00 06/26/24 08:11 81 MG Phenytoin Sodium 100 mg Q12HR GT 06/25/24 10:00 06/26/24 08:10 100 MG Carbidopa/Levodopa 1 tab TID PO 06/25/24 06:00 06/26/24 06:10 1 TAB Gabapentin 100 mg TID PO 06/25/24 06:00 06/26/24 06:10 100 MG Topiramate 25 mg BID PO 06/25/24 10:00 06/26/24 08:11 25 MG Hydralazine HCl 10 mg Q6HP PRN IV 06/24/24 23:00 Sodium Chloride 1,000 ml @ 60 mls/hr [id number] IV 06/24/24 23:00 06/25/24 08:31 60 MLS/HR Acetaminophen/ Hydrocodone Bitart 1 tab Q4HP PRN PO 06/24/24 23:00 Ondansetron HCl 4 mg Q4HP PRN IV 06/24/24 23:00 Docusate Sodium 100 mg BIDPRN PRN PO 06/24/24 23:00 Acetaminophen 650 mg Q6HP PRN PO 06/24/24 23:00 Nitroglycerin 0.4 mg Q5MINP PRN SL 06/24/24 23:00 Morphine Sulfate 2 mg Q30M PRN IV 06/24/24 23:00 Pantoprazole Sodium 40 mg DAILY IV 06/26/24 10:00 06/26/24 08:09 40 MG Enoxaparin Sodium 30 mg DAILY SC 06/26/24 10:00 06/26/24 08:10 30 MG Laboratory Results Laboratory Tests 06/25/24 03:30 06/26/24 07:56 Chemistry Test 06/26/24 07:56 Albumin 3.1 g/dL (3.2-4.8) L Calcium Level 8.5 mg/dL (8.7-10.4) L Magnesium Level 1.7 mg/dL (1.6-2.6) Total Protein 5.4 g/dL (5.7-8.2) L Lipid panel Test 06/26/24 07:56 Cholesterol Level 117 mg/dL (< 200) HDL Cholesterol 49 mg/dL (40-59) Triglycerides Level 73 mg/dL (< 150) LFT Test 06/26/24 07:56 Alanine Aminotransferase (ALT) < 9 U/L (7-40) Alkaline Phosphatase 112 U/L (46-116) Aspartate Amino Transferase (AST) 29 U/L (13-40) Total Bilirubin 0.4 mg/dL (0.2-1.0) HgA1c, TSH Test 06/26/24 07:56 Thyroid Stimulating Hormone (TSH) 1.46 uIU/mL (0.55-4.78) Urinalysis Test 06/24/24 20:40 Urine Color Straw (Yellow) Urine Clarity Clear (Clear) Urine pH 7.5 (5.0-9.0) Urine Specific [place] 1.007 (1.001-1.035) Urine Protein Negative (Negative) Urine Ketones Negative (Negative) Urine Blood Negative /uL (Negative) Urine Nitrite Negative (Negative) Urine Bilirubin Negative (Negative) Urine Urobilinogen Normal mg/dL (Negative) Urine Leukocyte Esterase 2+ /uL (Negative) Urine RBC None seen /hpf (0 - 4) Urine WBC 14 /hpf (0 - 5) Urine Squamous Epithelial Cells Few /hpf (<5) Urine Amorphous Crystals Few /hpf (None Seen) Urine Bacteria Few /hpf (None Seen) H Urine Glucose Normal mg/dL (Normal) Assessment/Plan Assessment/Plan Chest pain Acute coronary syndrome NSTEMI Parkinson's disease Supranuclear palsy Hypokalemia mild protein malnutrition Plan Aspirin Continue home meds including Sinemet and gabapentin and Dilantin and Topamax Cardiology consult Echocardiogram Protonix for GI prophylaxis Lovenox for DVT prophylaxis Called the family to update them about her condition, no answer 06/26/2024: Replace potassium Continue the current management Check her potassium again in the morning Continue the home medications Discussed with the daughter at the bedside Discharge planning for tomorrow Plan discussed with: Patient, Daughter Date of Service: Jun 26, 2024 Billing Provider: KEEGAN BEE MD Common Visit Codes: [id number] INP/OBS CARE(HIGH) KEEGAN BEE MD Jun 26, 2024 12:44
[2024-06-26] MEDS: POTASSIUM EFFERVESENT TAB 25 MEQ PO ONE (12:49)
[2024-06-27 01:00] VITALS: BP 94/45; PULSE 75; RESP 19; TEMP 99.1; O2SAT 100
[2024-06-27 05:00] VITALS: BP 87/50; PULSE 66; RESP 19; TEMP 98.3; O2SAT 96
[2024-06-27 07:55] LABS: Anion Gap 3 (5-15); Carbon Dioxide 30 mmol/L (20-31); Chloride 106 mmol/L (98-107); Potassium 3.5 mmol/L (3.5-5.1); Sodium 139 mmol/L (136-145)
[2024-06-27 07:58] LABS: Calcium 8.4 mg/dL (8.7-10.4)
[2024-06-27 08:00] VITALS: PULSE 62; PULSE 73; RESP 18; O2SAT 97
[2024-06-27 08:01] LABS: BUN/Creatinine Ratio 11.9 (10.0-20.0); Glucose 86 mg/dL (74-106)
[2024-06-27 08:03] LABS: Blood Urea Nitrogen 8 mg/dL (9-23); Magnesium 1.6 mg/dL (1.6-2.6)
[2024-06-27 09:00] VITALS: BP 112/65; PULSE 73; RESP 19; TEMP 98.1; O2SAT 97
--- NOTE | 2024-06-27 11:38 | DVHDS2 ---
Discharge Summary Date of Admission Jun 24, 2024 at 22:48 Date of Discharge: Jun 27, 2024 Labs/Diagnostic Data: Laboratory Results Test 06/27/24 06:59 06/26/24 07:56 06/25/24 03:30 06/24/24 20:40 Sodium Level 139 mmol/L (136-145) Potassium Level 3.5 mmol/L (3.5-5.1) Chloride Level 106 mmol/L (98-107) Carbon Dioxide Level 30 mmol/L (20-31) Anion Gap 3 (5-15) Blood Urea Nitrogen 8 mg/dL (9-23) Creatinine 0.67 mg/dL (0.550-1.02) Glomerular Filtration Rate Calc 92 mL/min (>90) BUN/Creatinine Ratio 11.9 (10.0-20.0) Serum Glucose 86 mg/dL (74-106) Calcium Level 8.4 mg/dL (8.7-10.4) Magnesium Level 1.6 mg/dL (1.6-2.6) Total Bilirubin 0.4 mg/dL (0.2-1.0) Aspartate Amino Transferase (AST) 29 U/L (13-40) Alanine Aminotransferase (ALT) < 9 U/L (7-40) Alkaline Phosphatase 112 U/L (46-116) Total Protein 5.4 g/dL (5.7-8.2) Albumin 3.1 g/dL (3.2-4.8) Triglycerides Level 73 mg/dL (< 150) Cholesterol Level 117 mg/dL (< 200) LDL Cholesterol 57 mg/dL (< 100) HDL Cholesterol 49 mg/dL (40-59) Thyroid Stimulating Hormone (TSH) 1.46 uIU/mL (0.55-4.78) White Blood Count 5.2 10^3/uL (4.4-10.8) Red Blood Count 3.33 10^6/uL (4.0-5.20) Hemoglobin 11.3 g/dL (12.2-16.2) Hematocrit 32.8 % (36.0-46.0) Mean Corpuscular Volume 98.4 fL (80.0-100.0) Mean Corpuscular Hemoglobin 33.9 pg (28.0-32.0) Mean Corpuscular Hemoglobin Concent 34.4 g/dL (32.0-36.0) Red Cell Distribution Width 12.5 % (11.8-14.3) Platelet Count 196 10^3/uL (140-450) Mean Platelet Volume 9.1 fL (6.9-10.8) Neutrophils (%) (Auto) 53.9 % (37.0-80.0) Lymphocytes (%) (Auto) 34.5 % (10.0-50.0) Monocytes (%) (Auto) 10.3 % (0.0-12.0) Eosinophils (%) (Auto) 0.8 % (0.0-7.0) Basophils (%) (Auto) 0.5 % (0.0-2.0) Neutrophils # (Auto) 2.8 10 ^3/uL (1.6-8.6) Lymphocytes # (Auto) 1.8 10 ^3/uL (0.4-5.4) Monocytes # (Auto) 0.5 10 ^3/uL (0-1.3) Eosinophils # (Auto) 0 10 ^3/uL (0-0.8) Basophils # (Auto) 0 10 ^3/uL (0-0.2) Nucleated Red Blood Cells 0.1 % Urine Color Straw (Yellow) Urine Clarity Clear (Clear) Urine pH 7.5 (5.0-9.0) Urine Specific [place] 1.007 (1.001-1.035) Urine Protein Negative (Negative) Urine Ketones Negative (Negative) Urine Blood Negative /uL (Negative) Urine Nitrite Negative (Negative) Urine Bilirubin Negative (Negative) Urine Urobilinogen Normal mg/dL (Negative) Urine Leukocyte Esterase 2+ /uL (Negative) Urine RBC None seen /hpf (0 - 4) Urine WBC 14 /hpf (0 - 5) Urine Squamous Epithelial Cells Few /hpf (<5) Urine Amorphous Crystals Few /hpf (None Seen) Urine Bacteria Few /hpf (None Seen) Urine Glucose Normal mg/dL (Normal) Test 06/24/24 20:08 06/24/24 19:23 Troponin I High Sensitivity 84 ng/L (</=34) B-Type Natriuretic Peptide 62.27 pg/mL (0-100) Other Laboratory Tests 06/27/24 06:59 06/25/24 03:30 Brief Hx & Hospital Course: Final diagnoses: Chest pain due to hypertensive urgency Hypertensive urgency NSTEMI type 2 due to hypertensive urgency Parkinson's disease Hypokalemia Hypomagnesemia Supranuclear palsy Hypokalemia mild protein malnutrition 73-year-old female who was admitted for chest pain Her workup was negative but her blood pressure was elevated Potassium and magnesium were low She had electrolyte replacement Cardiology recommended no further intervention She became stable afterwards Today she is doing well No chest pain Discharged home on the same home medications Her potassium is normal today Magnesium is still low and we will be given a supplement IV before discharge Follow up with primary care physician as soon as possible Condition at Discharge: Stable Final Diagnosis/Problems List Chest pain due to hypertensive urgency Hypertensive urgency NSTEMI type 2 due to hypertensive urgency Parkinson's disease Hypokalemia Hypomagnesemia Supranuclear palsy Hypokalemia mild protein malnutrition Discharge Disposition: Home SNF Discharge Will this Physician continue t: No Discharge Instruct/Medications Diet: Regular Activity: No Restrictions, As Tolerated Follow Up/Referral: PCP JESSY Medications: Same home meds Discharge Statement: "Patient was advised to return to the ER or call 911 if any headaches, dizziness, shortness of breath, chest pain, abdominal pain, bleeding, fevers, or worsening of medical condition. Patient was counseled about treatment plan, medications, possible side effects, patientverbalized understanding. All questions were answered to the best of my ability. This discharge took greater then 30 minutes in planning, reviewing documentation, counseling the patient, and discussing with other team members." ASSESSMENT ASSESSMENT Assessment Chest pain due to hypertensive urgency Hypertensive urgency NSTEMI type 2 due to hypertensive urgency Parkinson's disease Hypokalemia Hypomagnesemia Supranuclear palsy Hypokalemia mild protein malnutrition Date of Service: Jun 27, 2024 Billing Provider: KEEGAN BEE MD Common Visit Codes: [id number]-[id number] DISCH DAY >30min KEEGAN BEE MD Jun 27, 2024 11:37
[2024-06-27] MEDS: MAGNESIUM SULFATE 1GM/100ML 100 ML IV SCH (11:44)
[2024-06-27 12:01] VITALS: BP 112/65; PULSE 73; RESP 19; TEMP 98.1; O2SAT 97
[2024-06-27 13:20] VITALS: BP 137/51; PULSE 70; RESP 20; TEMP 97.4; O2SAT 96
== END 2024-06-27 13:30 | disposition home or self-care (01) | DRG 281 ==
LOC: ER 18:04 → EDBD 18:04 → TELE 22:48 → TELE-WESTW 06-25 04:33
PROVIDERS: ADMIT Internal Medicine Geriatric Medicine; ATTEND Internal Medicine Geriatric Medicine
DX: I16.0 Hypertensive urgency (principal); E44.1 Mild protein-calorie malnutrition; I21.A1 Myocardial infarction type 2; G23.1 Progressive supranuclear ophthalmoplegia [Steele-Richardson-Olszewski]; E87.6 Hypokalemia; G20.A1 Parkinson's disease without dyskinesia, without mention of fluctuations; G40.909 Epilepsy, unspecified, not intractable, without status epilepticus; E83.42 Hypomagnesemia; Z90.49 Acquired absence of other specified parts of digestive tract; Z74.01 Bed confinement status; Z68.27 Body mass index [BMI] 27.0-27.9, adult
CPT/HCPCS: 36415; 71045; 80048; 80053; 80061; 81001; 83735; 83880; 84443; 84484; 85025; 92610; 93005; 93306; 99291; G0378; J2470